=== PATIENT | male | born 1995 | race Caucasian/White ===

== ENCOUNTER 2016-11-23 19:14 | Emergency (ER) | payer OTHER ==
[~2016-11-23] VITALS: Ht 167.6 cm; Wt 72.0 kg
[~2016-11-23 19:14] MED LIST: NOCURR
[2016-11-23] MEDS ORDERED: OxyCODONE HCL/ACETAMINOPHEN 5-325 MG TABLET PO ONE (21:00)
[2016-11-23 21:09] VITALS: BP 127/76
== END 2016-11-23 21:17 | disposition home or self-care (01) ==
LOC: EMS 19:16
DX: J32.9 Chronic sinusitis, unspecified (principal); H53.142 Visual discomfort, left eye; J45.909 Unspecified asthma, uncomplicated
CPT/HCPCS: 99283

== ENCOUNTER 2017-01-14 10:47 | Emergency (ER) | payer OTHER ==
[~2017-01-14] VITALS: Ht 165.1 cm; Wt 68.2 kg
[2017-01-14 11:03] VITALS: BP 123/80
[2017-01-14] MEDS ORDERED: IBUPROFEN 800 MG TABLET PO ONE (11:15)
== END 2017-01-14 11:42 | disposition home or self-care (01) ==
LOC: EMS 10:49
DX: J02.9 Acute pharyngitis, unspecified (principal); H66.91 Otitis media, unspecified, right ear; J45.909 Unspecified asthma, uncomplicated; F12.10 Cannabis abuse, uncomplicated
CPT/HCPCS: 99283

== ENCOUNTER 2017-06-30 19:01 | Inpatient (IN) | payer MEDICAID, OTHER ==
[~2017-06-30] VITALS: Ht 170.2 cm; Wt 76.7 kg
[2017-06-30 19:51] LABS: BASOPHILS % (AUTO) 0.4 % (0.0-2.0); EOSINOPHILS % (AUTO) 2.1 % (1.0-6.0); HEMATOCRIT 41.8 % (41-53); HEMOGLOBIN 14.2 g/dL (13.5-17.5); LYMPHOCYTES # (AUTO) 1.3 K/uL (1.0-4.8); MEAN CORPUSCULAR HEMOGLOBIN 30.5 pg (26.0-34.0); MEAN CORPUSCULAR HGB CONC 33.9 G/dL (31.0-37.0); MEAN CORPUSCULAR VOLUME 90 fL (80-100); MONOCYTES # (AUTO) 0.5 K/uL (0.1-1.0); MONOCYTES % (AUTO) 6.8 % (2.0-9.0); NEUTROPHILS # (AUTO) 5.8 K/uL (1.8-7.7); NEUTROPHILS % (AUTO) 73.7 % (40.0-70.0); PLATELET COUNT (AUTO) 174 K/uL (150-450); RED BLOOD CELL COUNT(AUTO) 4.65 MIL/uL (4.50-5.90); RED CELL DISTRIBUTION WIDTH 13.1 % (11.5-14.5); WHITE BLOOD COUNT (AUTO) 7.9 K/uL (4.5-11.0)
[2017-06-30 20:00] LABS: ANION GAP 10 mmol/L (8-16); CALCIUM, TOTAL 9.3 mg/dL (8.8-10.5); CARBON DIOXIDE 27 mmol/L (22-29); CHLORIDE 104 mmol/L (98-107); CREATININE 0.94 mg/dL (0.60-1.30); GLOMERULAR FILTR. RATE CALC > 60 mL/min (>60); POTASSIUM 3.7 mmol/L (3.5-5.1); SODIUM SERUM 141 mmol/L (136-145); UREA NITROGEN, BLOOD 14 mg/dL (7-18)
[2017-06-30 20:09] LABS: ALANINE AMINOTRANSFERASE 36 U/L (12-78); ALBUMIN 4.4 g/dL (3.4-5.0); ASPARTATE AMINOTRANSFERASE 21 U/L (15-37); BILIRUBIN,TOTAL 0.3 mg/dL (0.1-1.0); TOTAL PROTEIN, SERUM 8.2 g/dL (6.4-8.2)
[2017-06-30] MEDS ORDERED: BACITRACIN 0.9 GM PACKET OINTMENT TP ONE (21:15)
[2017-06-30] MEDS ORDERED: HALOPERIDOL 5 MG TABLET PO PRN (21:15)
[2017-07-01 00:15] VITALS: BP 122/77
[2017-07-01] MEDS ORDERED: INFLUENZA VIRUS VACCINE QVS 2017-18 (3YR+)/PF 60 MCG/0.5 ML SYRINGE IM ONE (06:00)
[2017-07-01 08:00] VITALS: BP 116/62
[2017-07-01 09:54] LABS: CHOL/HDL RATIO 2.8 (4.2-7.3)
[2017-07-01] MEDS: LORazepam 2 MG TABLET PO PRN ×2 (11:09→18:58)
[2017-07-01 16:22] VITALS: BP 111/69
[2017-07-01] MEDS ORDERED: IBUPROFEN 400 MG TABLET PO PRN (20:00)
[2017-07-01] MEDS ORDERED: ACETAMINOPHEN 325 MG TABLET PO PRN (20:00)
[2017-07-01] MEDS ORDERED: ALBUTEROL SULFATE HFA 90 MCG/PUFF 8 GM INHALER IH PRN (20:00)
[2017-07-01] MEDS: ZOLPIDEM TARTRATE 10 MG TABLET PO PRN (20:01)
[2017-07-02 06:47] VITALS: BP 113/65
[2017-07-02 08:00] VITALS: BP 111/75
[2017-07-02] MEDS: LORazepam 2 MG TABLET PO PRN ×2 (08:26→17:09)
[2017-07-02 16:35] VITALS: BP 122/65
[2017-07-02] MEDS: ZOLPIDEM TARTRATE 10 MG TABLET PO PRN (20:08)
[2017-07-03 06:39] VITALS: BP 100/60
[2017-07-03 08:00] VITALS: BP 108/64
== END 2017-07-03 11:40 | disposition home or self-care (01) | DRG 754 ==
LOC: EMS 19:03 → B3A 20:55
PROVIDERS: ADMIT Psychiatry & Neurology Psychiatry; ATTEND Psychiatry & Neurology Psychiatry
DX: F32.9 Major depressive disorder, single episode, unspecified (principal); F12.10 Cannabis abuse, uncomplicated; J45.909 Unspecified asthma, uncomplicated; S61.519A Laceration without foreign body of unspecified wrist, initial encounter; X78.9XXA Intentional self-harm by unspecified sharp object, initial encounter; Z71.51 Drug abuse counseling and surveillance of drug abuser
CPT/HCPCS: 90471; 99285; G0480

== ENCOUNTER 2018-01-14 10:10 | Emergency (ER) | payer MEDICAID, OTHER ==
[~2018-01-14] VITALS: Ht 167.6 cm; Wt 81.8 kg
[2018-01-14 12:18] VITALS: BP 128/74
== END 2018-01-14 12:20 | disposition home or self-care (01) ==
LOC: EMS 10:10
DX: S01.511A Laceration without foreign body of lip, initial encounter (principal); S20.20XA Contusion of thorax, unspecified, initial encounter; F10.10 Alcohol abuse, uncomplicated; F32.9 Major depressive disorder, single episode, unspecified; J45.909 Unspecified asthma, uncomplicated; F12.10 Cannabis abuse, uncomplicated; W22.8XXA Striking against or struck by other objects, initial encounter; Y93.89 Activity, other specified; Y92.89 Other specified places as the place of occurrence of the external cause; Y99.8 Other external cause status
CPT/HCPCS: 99283

== ENCOUNTER 2022-07-04 17:43 | Emergency (ER) | payer OTHER ==
[~2022-07-04] VITALS: Ht 162.6 cm; Wt 90.9 kg
[2022-07-04] MEDS ORDERED: AMOX TR/POT CLAV 875 MG/125 MG TABLET PO ONE (21:00)
[2022-07-04] MEDS ORDERED: LIDOCAINE 1% 10 ML VIAL PERC ONE (21:00)
[2022-07-04] MEDS ORDERED: PERTUSS(ACELL),DIPH,TET VAC/PF 0.5 ML SYRINGE IM. ONE (21:00)
[2022-07-04] MEDS ORDERED: NEOMYCIN/BACITRACIN/POLYMYXIN B OINTMENT PACKET TP ONE (22:00)
[2022-07-04 22:05] VITALS: BP 119/60
[2022-07-04] MEDS ORDERED: AMOX1TAB16 PO (22:15)
== END 2022-07-04 23:11 | disposition home or self-care (01) ==
LOC: EMS 17:47
DX: S60.371A Other superficial bite of right thumb, initial encounter (principal); S50.872A Other superficial bite of left forearm, initial encounter; J45.909 Unspecified asthma, uncomplicated; F12.90 Cannabis use, unspecified, uncomplicated; Z98.890 Other specified postprocedural states; W54.0XXA Bitten by dog, initial encounter; Y93.89 Activity, other specified; Y92.89 Other specified places as the place of occurrence of the external cause; Y99.8 Other external cause status
CPT/HCPCS: 99283; 90715; 90471; 12002; J3490

== ENCOUNTER 2022-11-19 17:25 | Emergency (ER) | payer OTHER ==
[~2022-11-19] VITALS: Ht 162.6 cm; Wt 91.0 kg
[~2022-11-19 17:25] MED LIST changes: +AMOX1TAB16 PO; -NOCURR
[2022-11-19] MEDS ORDERED: BACITRACIN 0.9 GM PACKET OINTMENT TP ONE (17:45)
[2022-11-19] MEDS ORDERED: HYDROGEN PEROXIDE 118 ML SOLUTION TP ONE (17:45)
[2022-11-19 18:45] VITALS: BP 129/79
[2022-11-19] MEDS ORDERED: IBUP-1554 PO (20:11)
[2022-11-19] MEDS ORDERED: PENI500T2 PO (20:11)
== END 2022-11-19 20:25 | disposition home or self-care (01) ==
LOC: EMS 17:25
DX: S01.81XA Laceration without foreign body of other part of head, initial encounter (principal); S01.512A Laceration without foreign body of oral cavity, initial encounter; J45.909 Unspecified asthma, uncomplicated; F12.90 Cannabis use, unspecified, uncomplicated; X58.XXXA Exposure to other specified factors, initial encounter; Y93.89 Activity, other specified; Y92.89 Other specified places as the place of occurrence of the external cause; Y99.8 Other external cause status
CPT/HCPCS: 12011; 70450; 70486; 99284